=== PATIENT | male | born 1940 | race Two or more races ===

== ENCOUNTER 2018-05-09 13:12 | Inpatient (IN) | payer OTHER, MEDICAID ==
[~2018-05-09] VITALS: Ht 162.6 cm; Wt 65.8 kg
--- NOTE | 2018-05-09 13:20 | NUR ---
BIBRA DUE TO HYPOTENSION AND DIZINNESS. PATIENT IS ALERT AND ORIENTED X 3, SPANSIH SPEAKING ONLY. PUT HIM ON 02 @ 2LPM VIA NC AND TOLERATED WELL WITH 02 SAT OF 96%. IV HEPLOCK INITIATED. KEPT COMFORTABLE. WILL CONTINUE TO MONITOR ACCORDINGLY.
--- NOTE | 2018-05-09 13:25 | NUR ---
DR. MENDOZA AT BEDSIDE FOR EVAL.
[2018-05-09] MEDS ORDERED: IV NS 0.9% 1,000 ML BAG IV ONE (13:30)
[2018-05-09 13:45] LABS: BASOPHILS # (AUTO) 0.1 /CMM (0.0-0.2); BASOPHILS % (AUTO) 1.3 % (0.0-2.0); EOSINOPHILS % (AUTO) 1.6 % (0.0-6.0); HEMATOCRIT 36 % (39-51); HEMOGLOBIN 12.3 g/dL (13.5-17.5); LYMPHOCYTES # (AUTO) 1.8 /CMM (0.8-4.8); LYMPHOCYTES % (AUTO) 39.4 % (20.0-44.0); MEAN CORPUSCULAR HGB CONC 35 g/dl (31.0-36.0); MEAN CORPUSCULAR VOLUME 89 fL (80-96); MONOCYTES # (AUTO) 0.4 /CMM (0.1-1.30); MONOCYTES % (AUTO) 8.2 % (2.0-12.0); NEUTROPHILS # (AUTO) 2.3 /CMM (1.8-8.9); NEUTROPHILS % (AUTO) 49.5 % (43.0-81.0); PLATELET COUNT (AUTO) 216 /CMM (150-450); RDW COEFFICIENT OF VARIATION 13.9 (11.5-15.0); WHITE BLOOD COUNT (AUTO) 4.7 K/uL (4.3-11.0)
[2018-05-09 13:57] LABS: CARBON DIOXIDE 28 mmol/L (21-32); CHLORIDE 99 mmol/L (98-107); CREATININE 2.1 mg/dL (0.6-1.3); GLUCOSE 252 mg/dL (74-106); POTASSIUM 4.6 mmol/L (3.5-5.1); SODIUM SERUM 133 mmol/L (136-145); UREA NITROGEN, BLOOD 46 mg/dL (7-18)
[2018-05-09 13:59] LABS: INR 0.9 (0.85-1.15)
[2018-05-09 14:02] LABS: ALANINE AMINOTRANSFERASE 24 U/L (12-78); ALBUMIN 3.5 g/dL (3.4-5.0); ALKALINE PHOSPHATASE 141 U/L (46-116); ASPARTATE AMINOTRANSFERASE 24 U/L (15-37); BILIRUBIN,DIRECT 0.1 mg/dL (0.0-0.2); BILIRUBIN,TOTAL 0.4 mg/dL (0.2-1.0); TOTAL PROTEIN, SERUM 7.1 g/dL (6.4-8.2)
[2018-05-09 14:03] LABS: ALCOHOL, BLOOD < 3 mg/dL (0-0)
[2018-05-09 14:04] LABS: TROPONIN I < 0.017 ng/mL (0.00-0.056)
[2018-05-09 14:33] LABS: THYROID STIMULATING HORMONE 5.731 uIU/mL (0.358-3.74)
[2018-05-09] MEDS ORDERED: GLIM4TAB2 PO (15:26)
[2018-05-09] MEDS ORDERED: METF-442 PO (15:26)
[2018-05-09] MEDS ORDERED: LIRA0.6P SQ (15:26)
[2018-05-09] MEDS ORDERED: INSU100V27 SQ (15:26)
--- NOTE | 2018-05-09 15:50 | NUR ---
REPORT GIVEN TO ADILENE LUX. Addendum: 05/09/18 at 1550 by REAGAN PATIENT GOING TO [place] [id number]
[2018-05-09 16:00] VITALS: BP 149/109
[2018-05-09] MEDS ORDERED: MAGNESIUM HYDROXIDE 30 ML UDC PO PRN (16:00)
[2018-05-09] MEDS ORDERED: Z GUARD REMEDY 2 OZ OINT TP PRN (16:00)
[2018-05-09] MEDS ORDERED: ACETAMINOPHEN 325 MG TABLET PO PRN (16:00)
[2018-05-09] MEDS ORDERED: ONDANSETRON HCL/PF 4 MG/2 ML VIAL IVP PRN (16:00)
[2018-05-09] MEDS ORDERED: DEXTROSE 50%-WATER 50 ML DISP.SYRIN IV PRN (16:00)
[2018-05-09] MEDS ORDERED: MAG HYDROX/AL HYDROX/SIMETH 30 ML UDC PO PRN (16:00)
[2018-05-09] MEDS ORDERED: HYDROCODONE/APAP 5/325MG 1 EACH TABLET PO PRN (16:00)
[2018-05-09] MEDS ORDERED: ZOLPIDEM TARTRATE 5 MG TABLET PO PRN (16:00)
--- NOTE | 2018-05-09 16:00 | NUR ---
PT ARRIVED ON THE UNIT VIA WHEELCHAIR. PT A/O X 4 , DANISH SPEAKING ONLY. NO SKIN ISSUE EXCEPT BRUISES ON BOTH ARMS. PT DENIES FALLS. PT IS STABLE WITH NO DISTRESS NOTED AT THIS TIME. SAFETY PRECAUTIONS IN PLACE, CALL LIGHT WITHIN REACH.WILL F/U ORDERS AND CONTINUE TO MONITOR.
[2018-05-09] MEDS: GLIMEPIRIDE 4 MG TABLET PO SCH (17:56)
[2018-05-09] MEDS: BLOOD SUGAR DIAGNOSTIC 1 EACH STRIP IN SCH ×2 (17:58→21:21)
[2018-05-09] MEDS: INSULIN REGULAR, HUMAN 100 UNIT/ML 3 ML VIAL SQ PRN ×2 (18:07→21:20)
--- NOTE | 2018-05-09 19:25 | NUR ---
TELE/RN NOTES RECEIVED PT. SITTING UP IN CHAIR. PT. IS AWAKE, ALERT AND ORIENTED X3. BREATHING EVEN AND UNLABORED ON ROOM AIR. NO SOB, RESPIRATORY DISTRESS OR COMPLAINTS OF PAIN NOTED AT THIS TIME. NO COMPLAINTS OF LIGHTHEADED OR DIZZINESS NOTED AT THIS TIME. PT. WITH EXTERNAL COAL DRIER OPERATOR PRESENT AND INTACT CURRENT RHYTHM = SINUS RHYTHM HR 82. PT. WITH RIGHT HAND 20 GAUGE IV SALINE LOCK PRESENT, PATENT AND INTACT. PT. WITH FAMILY MEMBERS PRESENT AT BEDSIDE. PT. EDUCATED TO CALL FOR ASSISTANCE BEFORE AMBULATING. PT. VERBALIZED UNDERSTANDING. BED LOCKED AND IN LOWEST POSITION, SIDE RAILS UP X2, CALL LIGHT WITHIN REACH, WILL CONTINUE TO MONITOR.
[2018-05-09 19:35] VITALS: BP 139/77
[2018-05-09] MEDS: MECLIZINE HCL 25 MG TABLET PO SCH (21:14)
[2018-05-10] VITALS: BP 121/72
[2018-05-10 04:00] VITALS: BP 129/70
[2018-05-10] MEDS: MECLIZINE HCL 25 MG TABLET PO SCH ×3 (04:44→20:44)
--- NOTE | 2018-05-10 06:07 | NUR ---
TELE/RN NOTES PT. IS LYING IN BED RESTING, BREATHING EVEN AND UNLABORED ON ROOM AIR. NO SOB, RESPIRATORY DISTRESS OR COMPLAINTS OF PAIN NOTED AT THIS TIME AND THROUGHOUT SHIFT. NO COMPLAINTS OF LIGHTHEADED OR DIZZINESS NOTED AT THIS TIME AND THROUGHOUT SHIFT. PT. WITH EXTERNAL SENIOR MAINTENANCE MECHANIC PRESENT AND INTACT CURRENT RHYTHM = SINUS RHYTHM HR 72. PT. WITH RIGHT HAND 20 GAUGE IV SALINE LOCK PRESENT, PATENT AND INTACT. ALL PT. NEEDS MET. BED LOCKED AND IN LOWEST POSITION, SIDE RAILS UP X2, CALL LIGHT WITHIN REACH, WILL CONTINUE ENDORSE TO DAYSHIFT NURSE FOR CONTINUITY OF CARE.
[2018-05-10 06:44] LABS: BASOPHILS % (AUTO) 0.6 % (0.0-2.0); EOSINOPHILS % (AUTO) 1.8 % (0.0-6.0); HEMATOCRIT 35 % (39-51); HEMOGLOBIN 12.1 g/dL (13.5-17.5); LYMPHOCYTES # (AUTO) 1.8 /CMM (0.8-4.8); LYMPHOCYTES % (AUTO) 40.6 % (20.0-44.0); MEAN CORPUSCULAR HGB CONC 34 g/dl (31.0-36.0); MEAN CORPUSCULAR VOLUME 90 fL (80-96); MONOCYTES # (AUTO) 0.5 /CMM (0.1-1.30); MONOCYTES % (AUTO) 11.8 % (2.0-12.0); NEUTROPHILS % (AUTO) 45.2 % (43.0-81.0); PLATELET COUNT (AUTO) 215 /CMM (150-450); RED BLOOD CELL COUNT(AUTO) 3.93 MIL/uL (4.5-6.0); WHITE BLOOD COUNT (AUTO) 4.4 K/uL (4.3-11.0)
[2018-05-10] MEDS: BLOOD SUGAR DIAGNOSTIC 1 EACH STRIP IN SCH ×4 (06:50→21:28)
[2018-05-10] MEDS: INSULIN REGULAR, HUMAN 100 UNIT/ML 3 ML VIAL SQ PRN ×3 (06:51→21:47)
[2018-05-10 07:11] LABS: CHOLESTEROL 183 mg/dL (<200); HDL CHOLESTEROL 52 mg/dL (40-60); LDL 120 mg/dL (0-99); THYROID STIMULATING HORMONE 8.613 uIU/mL (0.358-3.74); TRIGLYCERIDES 151 mg/dL (30-150)
[2018-05-10 07:13] LABS: CARBON DIOXIDE 29 mmol/L (21-32); CHLORIDE 100 mmol/L (98-107); CREATININE 1.3 mg/dL (0.6-1.3); GLUCOSE 229 mg/dL (74-106); MAGNESIUM 1.8 mg/dL (1.8-2.4); PHOSPHORUS 3.2 mg/dL (2.5-4.9); POTASSIUM 4.1 mmol/L (3.5-5.1); SODIUM SERUM 136 mmol/L (136-145); UREA NITROGEN, BLOOD 30 mg/dL (7-18)
--- NOTE | 2018-05-10 07:19 | NUR ---
ADVANCED PRACTICE NURSE OPENING NOTES PT WAS RECEIVED IN BED AT LOWEST AND LOCKED POSITION WITH SIDE RAILS UP X2, NO S/S OF PAIN OR DISTRESS NOTED, BREATHING IS EVEN AND UNLABORED ON RA, IV IS PATENT AND INTACT, ON TELE MONITOR CURRENTLY SR,80S, BED ALARM IS ON, SAFETY PRECAUTIONS IN PLACE, CALL LIGHT WITHIN REACH, WILL MONITOR ACCORDINGLY
[2018-05-10 07:29] LABS: CALCIUM, SERUM 8.7 mg/dL (8.5-10.1)
[2018-05-10 08:00] VITALS: BP 142/77
[2018-05-10] MEDS: GLIMEPIRIDE 4 MG TABLET PO SCH ×2 (08:18→16:52)
[2018-05-10] MEDS: ASPIRIN EC 81 MG TABLET.DR PO SCH (12:31)
[2018-05-10] MEDS: IV NS 0.9% 1,000 ML IV PRN (12:32)
--- NOTE | 2018-05-10 12:59 | NUR ---
PT STABLE AND WAS PICKED UP AT THIS TIME FOR MRI OF BRAIN AND MRA OF HEAD WITHOUT CONTRAST
--- NOTE | 2018-05-10 14:05 | NUR ---
PT ARRIVED BACK FROM PROCEDURE, PT IS STABLE, WILL CONTINUE TO MONITOR ACCORDINGLY
[2018-05-10 16:00] VITALS: BP 147/78
--- NOTE | 2018-05-10 17:00 | NUR ---
BG WAS NOTED TO BE 78, PER SLIDING SCALE NO INSULIN REQUIRED AT THIS TIME
--- NOTE | 2018-05-10 18:00 | NUR ---
MS RN OPENING NOTES PT IN BED AT LOWEST AND LOCKED POSITION WITH SIDE RAILS UP X2, NO S/S OF PAIN OR DISTRESS NOTED, BREATHING IS EVEN AND UNLABORED ON RA, A/O X3 PALESTINIAN SPEAKING ONLY, IV IS PATENT AND INTACT WITH IVF RUNNING, PT IS AMBULATORY, BED ALARM IS ON, SAFETY PRECAUTIONS IN PLACE, CALL LIGHT WITHIN REACH, ALL NEEDS ATTENDED TO, WILL ENDORSE TO SHAMPOO PERSON FOR CONTINUITY OF CARE Addendum: 05/10/18 at 1804 by PRETTY MCGILL RN MS RN CLOSING NOTES
[2018-05-10 20:00] VITALS: BP 137/85
--- NOTE | 2018-05-10 20:00 | NUR ---
MS/RN OPENING NOTES RECEIVED PATIENT IN BED, AWAKE, ALERT X3, LATVIAN SPEAKING WITH BRP. DENIES PAIN, NO OBSERVED GUARDING OR GRIMACE, CALM AND COOPERATIVE TO CARE INSTRUCTED TO USE CALL LIGHTS FOR ASSISTANCE. CALL LIGHTS WITHIN REACH, BED IN LOCK POSITION, WILL MONITOR, BED ALARM ON. RESPIRATIONS EVEN AND UNLABORED, ON ROOM AIR. WILL MONITOR HYPO/HYPERGLYCEMIA, RECEIVED ENDORSEMENT FROM AM RN FOR JOSE J. PROVIDE FLUIDS, IV SITE WITH NO S/S OF INFILTRATION OR REDNESS, ON RIGHT HAND GAUGE 20, ABLE TO FLUSH.
[2018-05-10 20:31] VITALS: BP 137/85
[2018-05-10] MEDS: ATORVASTATIN 10 MG TABLET PO SCH (21:28)
--- NOTE | 2018-05-10 22:00 | NUR ---
MS/RN NOTES BS CHECK AT 262, INSULIN SLIDING SCALE PROTOCOL ADMINISTER AND CO SIGNED BY ANOTHER RN AT 6UNITS, PROVIDED SOME SNACKS.
[2018-05-11] MEDS: IV NS 0.9% 1,000 ML IV PRN ×2 (03:08→21:22)
[2018-05-11 03:56] VITALS: BP_SYST 141; BP_SYST 155; BP_DIAS 82; BP_DIAS 87
[2018-05-11 03:57] VITALS: BP 125/75
[2018-05-11] MEDS: MECLIZINE HCL 25 MG TABLET PO SCH ×3 (04:57→20:09)
[2018-05-11] MEDS: BLOOD SUGAR DIAGNOSTIC 1 EACH STRIP IN SCH ×4 (06:14→21:14)
--- NOTE | 2018-05-11 06:20 | NUR ---
MS/RN NOTES BLOOD SUGAR CHECK, PATIENT ALERT, ORIENTED, AWAKE AND CAN FOLLOW SIMPLE COMMANDS, BLOOD SUGAR CHECK AT 64, GAVE ORANGE JUICE, ABLE TO TOLERATE. WILL MONITOR.
--- NOTE | 2018-05-11 06:38 | NUR ---
327-1 MS/RN CLOSING NOTES PATIENT ABLE TO SLEEP DURING THE NIGHTS, PARTICIPATIVE AND COOPERTAIVE TO CARE, DENIES PAIN, IV FLUIDS ADMINISTERED FOR HYDRATION, BED IN LOCKED POSITIN, CALL LIGHTS WITHIN REACHED.WILL ENDORSE TO AM RN FOR JOSE J.
[2018-05-11 07:07] LABS: BASOPHILS % (AUTO) 0.4 % (0.0-2.0); HEMATOCRIT 36 % (39-51); HEMOGLOBIN 12.1 g/dL (13.5-17.5); LYMPHOCYTES # (AUTO) 2.4 /CMM (0.8-4.8); LYMPHOCYTES % (AUTO) 42.5 % (20.0-44.0); MEAN CORPUSCULAR HGB CONC 34 g/dl (31.0-36.0); MEAN CORPUSCULAR VOLUME 90 fL (80-96); MONOCYTES # (AUTO) 0.6 /CMM (0.1-1.30); MONOCYTES % (AUTO) 10.7 % (2.0-12.0); NEUTROPHILS # (AUTO) 2.6 /CMM (1.8-8.9); NEUTROPHILS % (AUTO) 45.4 % (43.0-81.0); PLATELET COUNT (AUTO) 210 /CMM (150-450); RED BLOOD CELL COUNT(AUTO) 3.94 MIL/uL (4.5-6.0); WHITE BLOOD COUNT (AUTO) 5.7 K/uL (4.3-11.0)
[2018-05-11 07:26] LABS: CALCIUM, SERUM 8.2 mg/dL (8.5-10.1); CARBON DIOXIDE 28 mmol/L (21-32); CHLORIDE 103 mmol/L (98-107); CREATININE 0.9 mg/dL (0.6-1.3); GLUCOSE 94 mg/dL (74-106); MAGNESIUM 1.4 mg/dL (1.8-2.4); PHOSPHORUS 2.9 mg/dL (2.5-4.9); POTASSIUM 3.8 mmol/L (3.5-5.1); SODIUM SERUM 138 mmol/L (136-145); UREA NITROGEN, BLOOD 19 mg/dL (7-18)
--- NOTE | 2018-05-11 07:48 | NUR ---
RN NOTES PATIENT A/OX3, AZERI SPEAKING, PATIENT STILL C/O DIZZINESS. INSTRUCTED PATIENT TO CALL FOR ASSISTANCE, RETAIL LOAN ORIGINATOR ASSISTANT RN REPORTED THAT PATIENT WAS GIVEN ORANGE JUICE FOR BS 64. NEEDS ATTENDED AND MET, CALL LIGHT WITHIN REACH, WILL CONTINUE TO MONITOR.
[2018-05-11 08:00] VITALS: BP 132/70
[2018-05-11] MEDS: ASPIRIN EC 81 MG TABLET.DR PO SCH (09:32)
[2018-05-11] MEDS: GLIMEPIRIDE 4 MG TABLET PO SCH ×2 (09:32→17:40)
[2018-05-11] MEDS ORDERED: KETOROLAC TROMETHAMINE INJ 30 MG/ML VIAL IV STA (10:10)
[2018-05-11] MEDS: Magnesium 1GM/D5W 100ML PREMIX 100 ML IV SCH ×2 (11:22→13:01)
[2018-05-11] MEDS: INSULIN REGULAR, HUMAN 100 UNIT/ML 3 ML VIAL SQ PRN ×3 (12:09→21:17)
[2018-05-11] MEDS ORDERED: IV NS 0.9% 500 ML IV ONE (12:30)
[2018-05-11] MEDS: LEVOTHYROXINE SODIUM 50 MCG TABLET PO SCH (13:05)
[2018-05-11] MEDS ORDERED: Magnesium 1GM/D5W 100ML PREMIX 100 ML IV SCH (13:30)
--- NOTE | 2018-05-11 14:18 | NUR ---
RN NOTES RECEIVED ORDER FOR LOVENOX 40MG SQ DAILY FROM DESIRE FERNÁNDEZ NP. ORDER NOTED AND CARRIED OUT.
[2018-05-11] MEDS: ENOXAPARIN SODIUM 40 MG/0.4 ML DISP.SYRIN SQ SCH (14:34)
[2018-05-11 16:00] VITALS: BP 138/83
--- NOTE | 2018-05-11 18:29 | NUR ---
RN NOTES PATIENT A/OX3, NO DISTRESS NOTED, BREATHING EVEN AND UNLABORED, NO SOB NOTED. NO S/SX OF HYPO/HYPERGLYCEMIA OBSERVED. PATIENT ASSISTED WITH ADLS, IVF INFUSING AND TOLERATING WELL. NEEDS ATTENDED AND MET, CALL LIGHT WITHIN REACH, WILL ENDORSE TO ROBOTIC MAINTENANCE TECHNICIAN FOR JOSE J.
[2018-05-11 20:00] VITALS: BP 123/63
[2018-05-11] MEDS: ATORVASTATIN 10 MG TABLET PO SCH (21:14)
[2018-05-12 04:00] VITALS: BP 147/72
[2018-05-12] MEDS: MECLIZINE HCL 25 MG TABLET PO SCH ×2 (05:20→12:19)
[2018-05-12 06:00] VITALS: BP_SYST 147; BP_SYST 155; BP_SYST 156; BP_DIAS 72; BP_DIAS 88
--- NOTE | 2018-05-12 06:16 | NUR ---
MS RN NOTES AWAKE & RESPONSIVE. NOT IN ANY DISTRESS. NO SOB NOTED. DENIES ANY PAIN AT THIS TIME. PT STILL NOTED TO HAVE SOME DIZZINESS VERBALIZED BY THE PT. CALL LIGHT WITHIN REACH. BED IN LOWEST POSITION. SR UP X 3 WITH BED ALARM ON FOR SAFETY. WILL ENDORSE TO NEXT SHIFT.
[2018-05-12] MEDS: BLOOD SUGAR DIAGNOSTIC 1 EACH STRIP IN SCH ×2 (06:26→12:17)
[2018-05-12] MEDS: INSULIN REGULAR, HUMAN 100 UNIT/ML 3 ML VIAL SQ PRN ×2 (06:26→12:37)
[2018-05-12 07:18] LABS: BASOPHILS % (AUTO) 0.3 % (0.0-2.0); EOSINOPHILS % (AUTO) 1.4 % (0.0-6.0); HEMATOCRIT 35 % (39-51); HEMOGLOBIN 11.7 g/dL (13.5-17.5); LYMPHOCYTES # (AUTO) 1.9 /CMM (0.8-4.8); LYMPHOCYTES % (AUTO) 30.4 % (20.0-44.0); MEAN CORPUSCULAR HGB CONC 34 g/dl (31.0-36.0); MEAN CORPUSCULAR VOLUME 90 fL (80-96); MONOCYTES # (AUTO) 0.8 /CMM (0.1-1.30); NEUTROPHILS # (AUTO) 3.5 /CMM (1.8-8.9); NEUTROPHILS % (AUTO) 54.9 % (43.0-81.0); PLATELET COUNT (AUTO) 201 /CMM (150-450); RDW COEFFICIENT OF VARIATION 14.7 (11.5-15.0); RED BLOOD CELL COUNT(AUTO) 3.88 MIL/uL (4.5-6.0); WHITE BLOOD COUNT (AUTO) 6.4 K/uL (4.3-11.0)
[2018-05-12 07:26] LABS: CALCIUM, SERUM 8.2 mg/dL (8.5-10.1); CARBON DIOXIDE 29 mmol/L (21-32); CHLORIDE 104 mmol/L (98-107); GLUCOSE 127 mg/dL (74-106); MAGNESIUM 1.6 mg/dL (1.8-2.4); PHOSPHORUS 2.5 mg/dL (2.5-4.9); POTASSIUM 4.2 mmol/L (3.5-5.1); SODIUM SERUM 138 mmol/L (136-145); UREA NITROGEN, BLOOD 20 mg/dL (7-18)
--- NOTE | 2018-05-12 07:35 | NUR ---
MS RN RECEIVE DON BED, AWAKE,ALERT,ORIENTED X3,NOT IN ANY FORM OF DISTRESS, RESPIRATIONS EVEN AND UNLABORED,NO SOB NOTED, LUNGS ARE CLEAR,ABDOMEN SOFT,POSITIVE BOWEL SOUNDS, DENIES PAIN AT THIS TIME,ALL NEEDS ATTENDED.
[2018-05-12 08:00] VITALS: BP 156/93
[2018-05-12] MEDS: GLIMEPIRIDE 4 MG TABLET PO SCH (08:10)
[2018-05-12] MEDS: ASPIRIN EC 81 MG TABLET.DR PO SCH (08:10)
[2018-05-12] MEDS: LEVOTHYROXINE SODIUM 50 MCG TABLET PO SCH (08:10)
[2018-05-12] MEDS: ENOXAPARIN SODIUM 40 MG/0.4 ML DISP.SYRIN SQ SCH (08:12)
--- NOTE | 2018-05-12 08:30 | NUR ---
MS VAUGHN BREAKFAST SERVED,DUE MEDS GIVEN,TOLERATED WELL.
--- NOTE | 2018-05-12 10:00 | NUR ---
MS RN WAS SEEN BY DESIRE FERNÁNDEZ W/ DISCHARGE ORDER,ALL NEEDS ATTENDED.
[2018-05-12] MEDS ORDERED: ASPI-1152 PO (10:38)
[2018-05-12] MEDS ORDERED: MECL-102 PO (10:38)
[2018-05-12] MEDS ORDERED: LEVO50TA PO (10:38)
[2018-05-12] MEDS ORDERED: ATOR10TA PO (10:38)
[2018-05-12] MEDS: Magnesium 1GM/D5W 100ML PREMIX 100 ML IV SCH ×2 (10:43→12:17)
[2018-05-12] MEDS ORDERED: IV NS 0.9% 500 ML IV ONE (11:00)
--- NOTE | 2018-05-12 16:15 | NUR ---
ms rn other daughter came and wanted to bring dad home, discharge instructions given and understood, went home,all needs attended.
== END 2018-05-12 16:00 | disposition home or self-care (01) | DRG 683 ==
LOC: ER 13:15 → TELE 15:13 → MED 05-10 08:54
DX: N17.0 Acute kidney failure with tubular necrosis (principal); E87.1 Hypo-osmolality and hyponatremia; H81.399 Other peripheral vertigo, unspecified ear; E11.65 Type 2 diabetes mellitus with hyperglycemia; E78.5 Hyperlipidemia, unspecified; E86.0 Dehydration; Z79.82 Long term (current) use of aspirin; I67.2 Cerebral atherosclerosis; I10 Essential (primary) hypertension; E03.9 Hypothyroidism, unspecified; S50.12XA Contusion of left forearm, initial encounter; S50.11XA Contusion of right forearm, initial encounter
CPT/HCPCS: 36415; 70450-TC; 70544-TC; 70551-TC; 71045-TC; 80048-TC; 80061-TC; 80076-TC; 82962-TC; 83605-TC; 83735-TC; 84100-TC; 84439-TC; 84443-TC; 84484-TC; 85025-TC; 85730-TC; 86850-TC; 87040-TC; 87081-TC; 93307-TC; A4606; G0480; J1650; J1815; J1885; J3475; J7030; J7040; J8597; Z7610

== ENCOUNTER 2018-10-18 14:23 | Emergency (ER) | payer MEDICAID, OTHER ==
[~2018-10-18] VITALS: Ht 167.6 cm; Wt 65.8 kg
[~2018-10-18 14:23] MED LIST: ASPI-1152 PO; ATOR10TA PO; GLIM4TAB2 PO; INSU100V27 SQ; LEVO50TA PO; LIRA0.6P SQ; MECL-102 PO; METF-442 PO
--- NOTE | 2018-10-18 14:33 | NUR ---
[id number], FOUND ON THE STREET DRUNK AND STUMBLING, TO ER BED 11, HOOKED TO MONITOR, AWAITING MD KAUFMAN
--- NOTE | 2018-10-18 14:35 | NUR ---
DR MARTINEZ AT BEDSIDE FOR EVAL
--- NOTE | 2018-10-18 14:50 | NUR ---
URINE SAMPLE SENT TO LAB
[2018-10-18 15:04] LABS: EOSINOPHILS % (AUTO) 0.8 % (0.0-6.0); HEMATOCRIT 37 % (39-51); HEMOGLOBIN 12.5 g/dL (13.5-17.5); LYMPHOCYTES # (AUTO) 2.5 /CMM (0.8-4.8); LYMPHOCYTES % (AUTO) 52.5 % (20.0-44.0); MEAN CORPUSCULAR HGB CONC 34 g/dl (31.0-36.0); MEAN CORPUSCULAR VOLUME 89 fL (80-96); MONOCYTES # (AUTO) 0.3 /CMM (0.1-1.30); MONOCYTES % (AUTO) 7.3 % (2.0-12.0); NEUTROPHILS # (AUTO) 1.8 /CMM (1.8-8.9); NEUTROPHILS % (AUTO) 38.4 % (43.0-81.0); PLATELET COUNT (AUTO) 194 /CMM (150-450); WHITE BLOOD COUNT (AUTO) 4.7 K/uL (4.3-11.0)
[2018-10-18 15:10] LABS: APPEARANCE,URINE Clear (CLEAR); BILIRUBIN,URINE Negative (NEGATIVE); BLOOD, URINE Negative Ery/uL (NEGATIVE); COLOR,URINE Yellow (YELLOW); KETONES,URINE Negative (NEGATIVE); LEUKOCYTE ESTERASE ,URINE Negative (NEGATIVE); NITRITE, URINE Negative (NEGATIVE); PH,URINE 5.5 (5.0-8.0); PROTEIN,URINE Trace mg/dl (NEGATIVE); UGLUCOSE 500 MG/DL mg/dL (NEGATIVE); UROBILINOGEN,URINE 0.2 EU/dL (0.2)
[2018-10-18 15:12] LABS: CALCIUM, SERUM 8.2 mg/dL (8.5-10.1); CARBON DIOXIDE 28 mmol/L (21-32); CHLORIDE 97 mmol/L (98-107); CREATININE 1.3 mg/dL (0.6-1.3); GLUCOSE 270 mg/dL (74-106); SODIUM SERUM 131 mmol/L (136-145); UREA NITROGEN, BLOOD 22 mg/dL (7-18)
[2018-10-18 15:18] LABS: ALANINE AMINOTRANSFERASE 18 U/L (12-78); ALBUMIN 3.5 g/dL (3.4-5.0); ALCOHOL, BLOOD 205 mg/dL (0-0); ALKALINE PHOSPHATASE 112 U/L (46-116); ASPARTATE AMINOTRANSFERASE 20 U/L (15-37); BILIRUBIN,DIRECT 0.1 mg/dL (0.0-0.2); BILIRUBIN,TOTAL 0.3 mg/dL (0.2-1.0); TOTAL PROTEIN, SERUM 7.3 g/dL (6.4-8.2)
[2018-10-18 15:19] LABS: BACTERIA,URINE None seen /HPF (None Seen); RBC,URINE 0-2 /HPF (0-2); SQUAMOUS EPITHELIAL CELL,UR Few /HPF (None Seen); WBC,URINE 0-2 /HPF (0-3)
[2018-10-18 15:20] LABS: ACETAMINOPHEN < 2 ug/ml (10-30); SALICYLATE < 2.8 mg/dL (2.8-20.0)
--- NOTE | 2018-10-18 15:20 | NUR ---
PT WALKING AT HALLWAY, W UNSTEADY GAIT, TRYING TO GO HOME. EXPLAINED THAT HER DAUGHTER WILL COME AND PICK HIM UP. PT RETURNED TO BED.
--- NOTE | 2018-10-18 16:47 | NUR ---
PROVIDED WITH SANDWICH AND WATER. PT TOLERATING PO WELL.
--- NOTE | 2018-10-18 18:10 | NUR ---
Patient discharged to home accompanied by daughter Nataliia Clark [phone] in stable condition. Pt able to ambulate w steady gait. Written and verbal after care instructions given. Daughter verbalizes understanding of instruction.
[2018-10-18 18:38] VITALS: BP 112/74
== END 2018-10-18 18:38 | disposition home or self-care (01) ==
LOC: ER 14:26
DX: F10.129 Alcohol abuse with intoxication, unspecified (principal); E11.9 Type 2 diabetes mellitus without complications; I10 Essential (primary) hypertension; E03.9 Hypothyroidism, unspecified; Y90.7 Blood alcohol level of 200-239 mg/100 ml; Z88.0 Allergy status to penicillin; Z79.4 Long term (current) use of insulin; Z79.82 Long term (current) use of aspirin
CPT/HCPCS: 36415; 80048; 80076; 80305; 80307; 81001; 85025; 99283; A4606; G0480; 81000-TC

== ENCOUNTER 2022-06-12 22:35 | Inpatient (IN) | payer MEDICARE, OTHER ==
[~2022-06-12] VITALS: Ht 167.6 cm; Wt 49.9 kg
[~2022-06-12 22:35] MED LIST changes: -ASPI-1152 PO; +ASPI-1420 PO; -GLIM4TAB2 PO; +GLIM4TAB37 PO; -MECL-102 PO; +MECL-159 PO
--- NOTE | 2022-06-12 23:00 | NUR ---
[id number] FROM [facility] PULLED OUT GT EARLIER TODAY. NO F/C INPLACE TO KEEP OPEN. PT IS AAOX2 HX OF [facility]. DENIES ANY DISCOMFORT AT THIS TIME. CONNECTED TO POX AND HEART MONITOR. AWAITING MD KAUFMAN
--- NOTE | 2022-06-13 00:03 | NUR ---
COVID SWAB COLLECTED
--- NOTE | 2022-06-13 00:04 | NUR ---
BLOOD COLLECTED AND SENT TO LAB
--- NOTE | 2022-06-13 00:04 | NUR ---
IV LINE ESTABLISHED, [id number]
[2022-06-13] MEDS ORDERED: Z GUARD REMEDY 4 OZ OINT TP PRN (00:30)
[2022-06-13] MEDS ORDERED: ONDANSETRON HCL/PF 4 MG/2 ML VIAL IVP PRN (00:30)
[2022-06-13] MEDS ORDERED: ACETAMINOPHEN 325 MG TABLET PO PRN (00:30)
[2022-06-13 00:53] LABS: BASOPHILS # (AUTO) 0.1 K/uL (0.0-0.2); BASOPHILS % (AUTO) 1.2 % (0.0-2.0); EOSINOPHILS % (AUTO) 2.5 % (0.0-6.0); HEMATOCRIT 36 % (39-51); HEMOGLOBIN 11.7 g/dL (13.5-17.5); LYMPHOCYTES # (AUTO) 1.9 K/uL (0.8-4.8); LYMPHOCYTES % (AUTO) 30.3 % (20.0-44.0); MEAN CORPUSCULAR HGB CONC 33 g/dl (31.0-36.0); MEAN CORPUSCULAR VOLUME 88 fL (80-96); MONOCYTES # (AUTO) 0.6 K/uL (0.1-1.30); MONOCYTES % (AUTO) 9.5 % (2.0-12.0); NEUTROPHILS # (AUTO) 3.6 K/uL (1.8-8.9); NEUTROPHILS % (AUTO) 56.5 % (43.0-81.0); PLATELET COUNT (AUTO) 125 K/uL (150-450); RED BLOOD CELL COUNT(AUTO) 4.08 MIL/uL (4.5-6.0); WHITE BLOOD COUNT (AUTO) 6.4 K/uL (4.3-11.0)
[2022-06-13 01:44] LABS: ALBUMIN 3.1 g/dL (3.4-5.0); BILIRUBIN,TOTAL 0.9 mg/dL (0.2-1.0); CALCIUM, SERUM 9.2 mg/dL (8.5-10.1); MAGNESIUM 2.2 mg/dL (1.8-2.4); PHOSPHORUS 3.3 mg/dL (2.5-4.9); POTASSIUM 4.2 mmol/L (3.5-5.1); TOTAL PROTEIN, SERUM 8.5 g/dL (6.4-8.2)
--- NOTE | 2022-06-13 01:59 | NUR ---
321-2 PER NURSING RN
--- NOTE | 2022-06-13 02:13 | NUR ---
report given to felton rn for aiden
--- NOTE | 2022-06-13 03:30 | NUR ---
RN NOTES RECEIVED PATIENT FROM ER VIA SILVERIO, REPORTED BY ER NURSE DIPTI. A/O X1, CONFUSED, ABLE TO OBEY COMMAND, COSTA RICAN SPEAKING. ATTACHED TO 02, 2 LPM VIA NASAL CANNULA, BREATHING EVENLY AND UNLABORED. VITAL SIGNS TAKEN. NO DISTRESS NOTED. WITH IV ACCESS AT LEFT FOREARM #20, SALINE LOCK, INTACT AND PATENT. SKIN IMPAIRMENT NOTED AT MULTIPLE AREAS IN THE BODY. TAKEN PHOTOS AND FILED. WITH HEMODIALYSIS ACCESS AT RIGHT LOWER SUBCLAVIAN AREA. DIALYSIS TREATMENT (WED-WED-WED), LAST HD WEDNESDAY, 06/12 G-TUBE WAS REMOVED. FOR GI CONSULT AND NEPHRO CONSULT THIS AM. SAFETY PRECAUTIONS INITIATED, SIDE RAILS UP X3, BED LOWERED, BRAKES ON, CALL LIGHT WITHIN REACH. WILL CONTINUE TO MONITOR PATIENT THROUGHOUT THE SHIFT. Addendum: 06/13/22 at 0511 by VERONICA VAUGHN RN PATIENT WAS ON NPO WITH STRICT ASPIRATION PRECAUTION.
[2022-06-13 04:00] VITALS: BP 120/55
[2022-06-13 04:30] VITALS: BP 118/79
--- NOTE | 2022-06-13 05:24 | NUR ---
PATIENT SWABBED FOR MRSA, SPECIMEN TAKEN VIA LEFT NOSTRILS. PATIENT REFUSED TO BE SWABBED AT BOTH NOSTRILS. TOLERATED PROCEDURE WELL.
--- NOTE | 2022-06-13 06:50 | NUR ---
MS RN CLOSING NOTES PATIENT IS AWAKE, A/O X1, CONFUSED, ABLE TO OBEY COMMAND, GUATEMALAN SPEAKING. ATTACHED TO 02 WITH 2 LPM VIA NASAL CANNULA, BREATHING EVENLY AND UNLABORED. NO S/S OF RESPIRATORY DISTRESS AT THIS TIME. WITH IV ACCESS AT LEFT FOREARM #20, SALINE LOCK, INTACT AND PATENT. SKIN IMPAIRMENT NOTED AT MULTIPLE AREAS IN THE BODY. PHOTOS TAKEN AND FILED. WITH HEMODIALYSIS ACCESS AT RIGHT LOWER SUBCLAVIAN AREA. DIALYSIS TREATMENT (WED-WED-WED), LAST HD WEDNESDAY, 06/12. PATIENTS G-TUBE WAS REMOVED. ON NPO STATUS WITH STRICT ASPIRATION PRECAUTION. FOR GI CONSULT AND NEPHRO CONSULT THIS AM. SAFETY PRECAUTIONS INITIATED, SIDE RAILS UP X3, BED LOWERED, BRAKES ON, CALL LIGHT WITHIN REACH. WILL ENDORSE TO DAY SHIFT RN FOR JOSE J.
[2022-06-13 07:00] VITALS: BP 146/92
[2022-06-13] MEDS ORDERED: PANTOPRAZOLE 40 MG TABLET.DR PO SCH (07:30)
--- NOTE | 2022-06-13 08:02 | NUR ---
MS RN OPENING NOTES PATIENT IS AWAKE, A/O X1, CONFUSED, ABLE TO FOLLOW INSTRUCTIONS; UGANDAN SPEAKING. PT ON 2 LPM O2 VIA NASAL CANNULA, BREATHING EVENLY AND UNLABORED. NO S/S OF RESPIRATORY DISTRESS AT THIS TIME. WITH IV ACCESS AT LEFT FOREARM #20, SALINE LOCK, INTACT AND PATENT. HD CATH AT RIGHT LOWER SUBCLAVIAN AREA NOTED. ON NPO STATUS. DRESSING NOTED AT PREVIOUS GTUBE SITE, CDI. NPO STATUS. SAFETY MEASURES IN PLACE, CALL LIGHT AND TABLE WITHIN REACH, WILL CONT WITH PLAN OF CARE DURING SHIFT.
[2022-06-13] MEDS: IV D5/0.45 NACL 1,000 ML IV PRN (08:23)
[2022-06-13] MEDS ORDERED: LINA5TAB GT (09:17)
[2022-06-13] MEDS ORDERED: COLL30OI TP (09:17)
[2022-06-13] MEDS ORDERED: TRAZ-252 GT (09:17)
[2022-06-13] MEDS ORDERED: ALBU2.5V38 NEB (09:17)
[2022-06-13] MEDS ORDERED: INSU100V7 SQ (09:17)
[2022-06-13] MEDS ORDERED: QUET25TA GT (09:17)
[2022-06-13] MEDS ORDERED: DONE5TAB34 GT (09:17)
[2022-06-13] MEDS ORDERED: LEVO150T8 GT (09:17)
[2022-06-13] MEDS ORDERED: FERR300L GT (09:17)
[2022-06-13] MEDS ORDERED: PANT40SU2 GT (09:17)
[2022-06-13] MEDS ORDERED: MIDO5TAB4 GT (09:17)
[2022-06-13] MEDS ORDERED: ASPI-1169 GT (09:17)
[2022-06-13] MEDS ORDERED: OLANZAPINE 10 MG VIAL IM ONE ×2 (09:30→15:30)
[2022-06-13] MEDS ORDERED: ALBUTEROL FS 2.5 MG/3 ML VIAL.NEB NEB PRN (09:30)
[2022-06-13] MEDS ORDERED: QUETIAPINE FUMARATE 25 MG TABLET GT PRN (09:30)
--- NOTE | 2022-06-13 10:45 | NUR ---
MS RN NOTES; OBTAINED VERBAL CONSENT FOR HD FROM BRAYAN GRIMALDO DAUGHTER, SIGNED BY 2 SILK HANGER WITNESS.
[2022-06-13] MEDS: MIDODRINE HCL (5MG) 5 MG TABLET GT SCH ×2 (13:00→17:00)
--- NOTE | 2022-06-13 15:00 | NUR ---
MS RN NOTESl PT IS VERY AGITATED, TOOK HOSP GOWN OFF, TOLD RIB BUILDER HE WANTS TO GO HOME AND STARTED PULLING ON IV AND HD CATH DRESSING. 2 STUDENT NURSES STAYED WITH PT AT BEDSIDE, ALERTED MD, PENDING ORDER. 1510- ORDERED ONE TIME 5 MG ZYPREXA IM BUT AT THIS TIME PT HAS CALMED DOWN ON HIS OWN WITH 2 STUDENT NURSES AT BEDSIDE, HELD MEDICATION FOR NOW, WILL CONT TO REASSESS DURING SHIFT.
[2022-06-13 16:00] VITALS: BP 108/70
--- NOTE | 2022-06-13 17:30 | NUR ---
MS RN NOTES: PT ACCUCHECK [id number]- [id number] [phone]- NOTIFIED GLOVE PAIRER, GIVEN SUGAR, CONTINUED IV -D5 1/2 NS @ 75ML/HR, RECHECKED BS= 67, WILL REASSESS AND ENDORSE TO PM SHIFT.
--- NOTE | 2022-06-13 18:39 | NUR ---
MS RN OPENING NOTES PATIENT IS AWAKE, A/O X1, CONFUSED, ABLE TO FOLLOW INSTRUCTIONS BUT WITH PERIOD AGITATION, SLOVAK SPEAKING. PT ON 2 LPM O2 VIA NASAL CANNULA, BREATHING EVENLY AND UNLABORED. NO S/S OF RESPIRATORY DISTRESS AT THIS TIME. WITH IV ACCESS AT LEFT FOREARM #20,RUNNING D5 1/2 NS @75ML/HR, WRAPPED IN KERLIX TO PREVENT PULLING. HD CATH AT RIGHT LOWER SUBCLAVIAN AREA WRAPPED IN DRESSING, CLEAN, DRY AND INTACT. DRESSING NOTED AT PREVIOUS GTUBE SITE, CDI. NPO STATUS. DAUGHTER ARTURO IS AT BEDSIDE. SAFETY MEASURES IN PLACE, CALL LIGHT AND TABLE WITHIN REACH, WILL CONT WITH PLAN OF CARE DURING SHIFT. Addendum: 06/13/22 at 1928 by SAMI LARA RN THIS IS CLOSING NOTES FOR THIS PT, ENDORSED TO PM SHIFT.
--- NOTE | 2022-06-13 19:42 | NUR ---
MS RN OPENING NOTES RECEIVED PATIENT LYING AWAKE IN BED, WITH DAUGHTER. A/O X1, CONFUSED, VIETNAMESE SPEAKING. PT ON 2 LPM O2 VIA NASAL CANNULA, BREATHING EVENLY AND UNLABORED. NO S/S OF RESPIRATORY DISTRESS AT THIS TIME. WITH IV ACCESS AT LEFT FOREARM #20, RUNNING D5 1/2 NS @75ML/HR, WRAPPED IN KERLIX TO PREVENT PULLING. HD CATH AT RIGHT LOWER SUBCLAVIAN AREA WRAPPED IN DRESSING, CLEAN, DRY AND INTACT. DRESSING NOTED AT PREVIOUS G-TUBE SITE, CDI. NPO STATUS. DAUGHTER ARTURO IS AT BEDSIDE. SAFETY MEASURES IN PLACE, CALL LIGHT AND TABLE WITHIN REACH. WILL CONTINUE TO MONITOR.
[2022-06-13 20:00] VITALS: BP 118/78
[2022-06-13] MEDS: HEPARIN SODIUM, PORCINE 5000 UNITS/1 ML VIAL SQ SCH (21:30)
[2022-06-13] MEDS: DONEPEZIL 5 MG TABLET GT SCH (22:00)
[2022-06-13] MEDS ORDERED: TRAZODONE 50 MG TABLET PO SCH (22:00)
--- NOTE | 2022-06-14 06:00 | NUR ---
BLOOD SUGAR LEVEL: 66. ATTACHED TO D5 1/2NS, INFUSING WELL. WILL CONTINUE TO MONITOR.
[2022-06-14 06:06] LABS: CALCIUM, SERUM 9.2 mg/dL (8.5-10.1); CARBON DIOXIDE 27 mmol/L (21-32); CHLORIDE 104 mmol/L (98-107); GLUCOSE 75 mg/dL (74-106); MAGNESIUM 2.2 mg/dL (1.8-2.4); PHOSPHORUS 3.7 mg/dL (2.5-4.9); POTASSIUM 3.6 mmol/L (3.5-5.1); SODIUM SERUM 139 mmol/L (136-145); UREA NITROGEN, BLOOD 36 mg/dL (7-18)
[2022-06-14] MEDS: IV D5/0.45 NACL 1,000 ML IV PRN ×2 (06:46→22:42)
[2022-06-14 07:00] VITALS: BP 152/99
[2022-06-14] MEDS: LEVOTHYROXINE SODIUM 75 MCG TABLET GT SCH (07:30)
--- NOTE | 2022-06-14 07:48 | NUR ---
MS RN CLOSING NOTES RECEIVED PATIENT LYING AWAKE IN BED, WITH DAUGHTER. A/O X1, CONFUSED, SURINAMESE SPEAKING. PT ON 2 LPM O2 VIA NASAL CANNULA, BREATHING EVENLY AND UNLABORED. NO S/S OF RESPIRATORY DISTRESS AT THIS TIME. WITH IV ACCESS AT LEFT FOREARM #20, RUNNING D5 1/2 NS @75ML/HR, WRAPPED IN KERLIX TO PREVENT PULLING. HD CATH AT RIGHT LOWER SUBCLAVIAN AREA WRAPPED IN DRESSING, CLEAN, DRY AND INTACT. DRESSING NOTED AT PREVIOUS G-TUBE SITE, CDI. NPO STATUS. DAUGHTER ARTURO IS AT BEDSIDE. SAFETY MEASURES IN PLACE, CALL LIGHT AND TABLE WITHIN REACH. WILL CONTINUE TO MONITOR.
[2022-06-14 07:53] LABS: BASOPHILS # (AUTO) 0.1 K/uL (0.0-0.2); BASOPHILS % (AUTO) 1.6 % (0.0-2.0); EOSINOPHILS % (AUTO) 4.2 % (0.0-6.0); HEMATOCRIT 38 % (39-51); HEMOGLOBIN 12.4 g/dL (13.5-17.5); LYMPHOCYTES # (AUTO) 1.4 K/uL (0.8-4.8); LYMPHOCYTES % (AUTO) 38.9 % (20.0-44.0); MEAN CORPUSCULAR HGB CONC 33 g/dl (31.0-36.0); MEAN CORPUSCULAR VOLUME 87 fL (80-96); MONOCYTES # (AUTO) 0.4 K/uL (0.1-1.30); MONOCYTES % (AUTO) 11.9 % (2.0-12.0); NEUTROPHILS # (AUTO) 1.5 K/uL (1.8-8.9); NEUTROPHILS % (AUTO) 43.4 % (43.0-81.0); PLATELET COUNT (AUTO) 150 K/uL (150-450); RED BLOOD CELL COUNT(AUTO) 4.32 MIL/uL (4.5-6.0); WHITE BLOOD COUNT (AUTO) 3.5 K/uL (4.3-11.0)
[2022-06-14] MEDS: MIDODRINE HCL (5MG) 5 MG TABLET GT SCH ×3 (09:00→16:50)
[2022-06-14] MEDS: FERROUS SULFATE UDC 300 MG/5 ML UDC GT SCH (09:00)
[2022-06-14] MEDS: LINAGLIPTIN 5 MG TABLET GT SCH (09:00)
[2022-06-14] MEDS ORDERED: PANTOPRAZOLE 40 MG/PACK PACK GT SCH (09:00)
[2022-06-14] MEDS ORDERED: PANTOPRAZOLE 40 MG VIAL IV SCH (09:00)
[2022-06-14] MEDS: HEPARIN SODIUM, PORCINE 5000 UNITS/1 ML VIAL SQ SCH ×2 (09:00→21:00)
[2022-06-14] MEDS: ASPIRIN 81 MG TAB.CHEW GT SCH (09:00)
[2022-06-14] MEDS: THERAHONEY GEL 1.5 OZ TUBE TP SCH (09:18)
[2022-06-14] MEDS: PANTOPRAZOLE 40 MG VIAL IV SCH (09:24)
--- NOTE | 2022-06-14 10:08 | NUR ---
RN OPENING NOTES RECEIVED PATIENT LYING AWAKE IN BED, ALERT AND RESPONSIVE. A/O X1, CONFUSED, UKRAINIAN SPEAKING. PT ON 2 LPM O2 VIA NASAL CANNULA, BREATHING EVENLY AND UNLABORED. NO S/S OF RESPIRATORY DISTRESS AT THIS TIME. WITH IV ACCESS AT LEFT FOREARM #20, RUNNING D5 1/2 NS @75ML/HR, WRAPPED IN KERLIX TO PREVENT PULLING, PATENT AND INTACT, DUE MEDICATIONS VIA IV GIVEN. UNABLE TO ADMINISTER OTHER MEDICATIONS DUE TO PATIENT IS NPO, GT REPLACEMENT WILL BE DONE 06/15/22. HD CATH AT RIGHT LOWER SUBCLAVIAN AREA WRAPPED IN DRESSING, CLEAN, DRY AND INTACT. DRESSING NOTED AT PREVIOUS G-TUBE SITE, CDI. SAFETY MEASURES IN PLACE, CALL LIGHT AND TABLE WITHIN REACH. WILL CONTINUE PLAN OF CARE. Addendum: 06/14/22 at 1236 by CYN MCQUEEN RN HELD HEPARIN DUE TO ORDER TO HOLD ANTICOAGULATION, WILL CONTINUE TO MONITOR PATIENT.
[2022-06-14] MEDS ORDERED: DEXTROSE 50%-WATER 50 ML DISP.SYRIN IV PRN (10:30)
[2022-06-14] MEDS: BLOOD SUGAR DIAGNOSTIC 1 EACH STRIP IN SCH ×3 (12:02→22:48)
--- NOTE | 2022-06-14 12:11 | NUR ---
RN NOTES SUGAR CHECK= 85MG/DL, NO S/SX OF HYPOGLYCEMIA, NO INSULIN COVERAGE NEEDED.
[2022-06-14 16:00] VITALS: BP 126/82
[2022-06-14] MEDS: QUETIAPINE FUMARATE 25 MG TABLET GT SCH (16:09)
--- NOTE | 2022-06-14 18:48 | NUR ---
RN CLOSING NOTES RECEIVED PATIENT LYING AWAKE IN BED, ALERT AND RESPONSIVE, FAMILY AT THE BEDSIDE, BAHAMIAN SPEAKING ONLY, A/O X1, CONFUSED, PT ON 2 LPM O2 VIA NASAL CANNULA, BREATHING EVENLY AND UNLABORED. NO S/S OF RESPIRATORY DISTRESS AT THIS TIME, DENIES ANY PIAN. WITH IV ACCESS AT LEFT FOREARM #20, RUNNING D5 1/2 NS @75ML/HR, WRAPPED IN KERLIX TO PREVENT PULLING, PATENT AND INTACT, FLUSHES WELL. HD CATH AT RIGHT LOWER SUBCLAVIAN AREA WRAPPED IN DRESSING, CLEAN, DRY AND INTACT. DRESSING NOTED AT PREVIOUS G-TUBE SITE, CDI. NO INSULIN COVERAGE GIVEN. MIDODRINE NOT GIVEN DUE TO NO GT IN PLACED. SAFETY MEASURES IN PLACE, CALL LIGHT AND TABLE WITHIN REACH. WILL ENDORSE TO RELIEF WORKER NURSE FOR JOSE J. .
--- NOTE | 2022-06-14 20:16 | NUR ---
RN OPENING NOTES RECEIVED PATIENT LYING AWAKE IN BED, ALERT AND RESPONSIVE. A/O X1, CONFUSED, GEORGIAN SPEAKING. PT ON 2 LPM O2 VIA NASAL CANNULA, BREATHING EVENLY AND UNLABORED. NO S/S OF RESPIRATORY DISTRESS AT THIS TIME. WITH IV ACCESS AT LEFT FOREARM #20, RUNNING D5 1/2 NS @75ML/HR, WRAPPED IN KERLIX TO PREVENT PULLING, PATENT AND INTACT, DUE MEDICATIONS VIA IV GIVEN. UNABLE TO ADMINISTER OTHER MEDICATIONS DUE TO PATIENT IS NPO, GT REPLACEMENT WILL BE DONE 06/15/22. HOLD HEPARIN PER MD ORDER. SECURED CONSENT AND SIGNED BY DAUGHTER. HD CATH AT RIGHT LOWER SUBCLAVIAN AREA WRAPPED IN DRESSING, CLEAN, DRY AND INTACT. DRESSING NOTED AT PREVIOUS G-TUBE SITE, CDI. SAFETY MEASURES IN PLACE, CALL LIGHT AND TABLE WITHIN REACH. WILL CONTINUE PLAN OF CARE.
[2022-06-14 20:44] VITALS: BP 110/72
[2022-06-14] MEDS: DONEPEZIL 5 MG TABLET GT SCH (21:48)
[2022-06-14] MEDS: TRAZODONE 50 MG TABLET GT SCH (21:48)
--- NOTE | 2022-06-15 05:30 | NUR ---
EKG completed Addendum: 06/15/22 at 0601 by ASHLEY CLARK RT RESULTS GIVEN TO NURSE MARTIN
[2022-06-15] MEDS: BLOOD SUGAR DIAGNOSTIC 1 EACH STRIP IN SCH ×4 (06:31→22:44)
[2022-06-15 06:48] LABS: ALBUMIN 2.8 g/dL (3.4-5.0); BILIRUBIN,TOTAL 0.9 mg/dL (0.2-1.0); CALCIUM, SERUM 8.8 mg/dL (8.5-10.1); MAGNESIUM 2.1 mg/dL (1.8-2.4); PHOSPHORUS 3.6 mg/dL (2.5-4.9); POTASSIUM 3.5 mmol/L (3.5-5.1); TOTAL PROTEIN, SERUM 7.8 g/dL (6.4-8.2)
[2022-06-15 07:02] LABS: HEMATOCRIT 36 % (39-51); HEMOGLOBIN 11.9 g/dL (13.5-17.5); LYMPHOCYTES % (AUTO) 34.7 % (20.0-44.0); MEAN CORPUSCULAR HGB CONC 33 g/dl (31.0-36.0); MEAN CORPUSCULAR VOLUME 88 fL (80-96); MONOCYTES % (AUTO) 22.3 % (2.0-12.0); NEUTROPHILS % (AUTO) 38.6 % (43.0-81.0); PLATELET COUNT (AUTO) 161 K/uL (150-450)
[2022-06-15 07:03] LABS: BASOPHILS # (AUTO) 0.1 K/uL (0.0-0.2); BASOPHILS % (AUTO) 1.3 % (0.0-2.0); EOSINOPHILS % (AUTO) 3.1 % (0.0-6.0); LYMPHOCYTES # (AUTO) 1.4 K/uL (0.8-4.8); MONOCYTES # (AUTO) 0.9 K/uL (0.1-1.30); NEUTROPHILS # (AUTO) 1.5 K/uL (1.8-8.9)
[2022-06-15] MEDS: LEVOTHYROXINE SODIUM 75 MCG TABLET GT SCH (07:30)
--- NOTE | 2022-06-15 07:37 | NUR ---
RN CLOSING NOTES PATIENT LYING AWAKE IN BED, ALERT AND RESPONSIVE, FAMILY AT THE BEDSIDE, TURKMEN SPEAKING ONLY, A/O X1, CONFUSED, PT ON 2 LPM O2 VIA NASAL CANNULA, BREATHING EVENLY AND UNLABORED. NO S/S OF RESPIRATORY DISTRESS AT THIS TIME, DENIES ANY PIAN. WITH IV ACCESS AT LEFT FOREARM #20, RUNNING D5 1/2 NS @75ML/HR, WRAPPED IN KERLIX TO PREVENT PULLING, PATENT AND INTACT, FLUSHES WELL. HD CATH AT RIGHT LOWER SUBCLAVIAN AREA WRAPPED IN DRESSING, CLEAN, DRY AND INTACT. DRESSING NOTED AT PREVIOUS G-TUBE SITE, CDI. NO INSULIN COVERAGE GIVEN. SAFETY MEASURES IN PLACE, CALL LIGHT AND TABLE WITHIN REACH. WILL ENDORSE TO DAY SHIFT NURSE FOR JOSE J.
--- NOTE | 2022-06-15 07:38 | NUR ---
MS RN OPENING NOTES: RECEIVED PT IN BED. ASLEEP EASILY AROUSED WITH VERBAL STIMULI. KYRGYZ SPEAKING A/O X 2 WITH EPISODES OF CONFUSION AND FORGETFULNESS AND NEEDS FREQUENT REORIENTATION. NO SOB OR CARDIAC DISTRESS NOTED. MAINTAINED ON NPO. IV ACCESS ON LFA GAUGE 20, PATENT,INTACT AND INFUSING IV FLUIDS OF D5 1/2 NS 1L @ 75ML/HR. HD ACCESS ON R LOWER SUBCLAVIAN, PATENT WITH DRY DRESSING ON. SAFETY PRECAUTIONS MAINTAINED: BED LOCKED AND IN LOWEST POSITION, SIDE RAILS UP X 2. CALL LIGHT IN EASY REACH FOR HELP. WILL MONITOR ACCORDINGLY.
[2022-06-15 08:00] VITALS: BP 130/83
--- NOTE | 2022-06-15 08:44 | NUR ---
WOUND CARE CONSULT: LIMITED ASSESSMENT DUE TO PT PREVIOUSLY AGITATED AND COMBATIVE, RESTING NOW. RT FOOT PRESENTS WITH DRY BLACK NECROTIC TISSUE, ADMISSION PHOTOS INDICATE SACRAL STAGE 3 PRESSURE ULCER WITH SURROUNDING SCARRING AND SCABS /DISCOLORATION TO UPPER EXTREMITIES, PRESENT ON ADMISSION. DR PETRA LAI CALLED FOR SACRAL WOUND SURGICAL CONSULT AND DR MCCOY CALLED FOR DPM CONSULT. RECOMMENDATIONS MADE FOR SKIN PROTECTION. DISCUSSED WITH NURSING STAFF. MD IN AGREEMENT WITH PLAN OF CARE.
[2022-06-15] MEDS: ASPIRIN 81 MG TAB.CHEW GT SCH (09:00)
[2022-06-15] MEDS: QUETIAPINE FUMARATE 25 MG TABLET GT SCH ×2 (09:00→17:00)
[2022-06-15] MEDS: MIDODRINE HCL (5MG) 5 MG TABLET GT SCH ×3 (09:00→17:00)
[2022-06-15] MEDS: FERROUS SULFATE UDC 300 MG/5 ML UDC GT SCH (09:00)
[2022-06-15] MEDS: HEPARIN SODIUM, PORCINE 5000 UNITS/1 ML VIAL SQ SCH ×2 (09:00→21:00)
[2022-06-15] MEDS: LINAGLIPTIN 5 MG TABLET GT SCH (09:00)
[2022-06-15] MEDS: THERAHONEY GEL 1.5 OZ TUBE TP SCH (09:52)
[2022-06-15] MEDS: PANTOPRAZOLE 40 MG VIAL IV SCH (09:52)
[2022-06-15] MEDS: IV D5/0.45 NACL 1,000 ML IV PRN (10:58)
--- NOTE | 2022-06-15 11:50 | NUR ---
APS Transaction Advisory Services Manager made an APS report through [facility]. The reference number is [id number].
[2022-06-15 13:50] LABS: BAND % (MANUAL) 2 % (0.0-5.0); EOSINOPHILS % (MANUAL) 2 % (0-4); LYMPHOCYTES % (MANUAL) 45 % (16-48); MONOCYTES % (MANUAL) 20 % (0-11.0); MYELOCYTES % 1 % (0-0); NEUTROPHILS % (MANUAL) 30 (42-76)
--- NOTE | 2022-06-15 15:30 | NUR ---
RN NOTES: DAUGHTER (TONY) IN BED SIDE AND INFORMED THE SURGERY WILL BE TONIGHT BETWEEN 8-9PM. INFORMED TONY THAT WE ONLY NEED 1 DPOA FOR PT AND IT WILL BE WARREN.
[2022-06-15 16:00] VITALS: BP 122/77
--- NOTE | 2022-06-15 18:56 | NUR ---
RN NOTES: MS MORRIS (DAUGHTER) AT BED SIDE INFORMED HER THAT PT WILL NOT HAVE HD TONIGHT BECAUSE HE WILL HAVE PROCEDURE. ANESTHESIA MAY LOWER BP AND PT HAD EPISODES OF VERY LOW BP DURING HD. DAUGHTER VERBALIZED UNDERSTANDING.
--- NOTE | 2022-06-15 18:59 | NUR ---
RN MS CLOSING NOTES: PT IN BED AWAKE, TURKMEN SPEAKING. A/O X 2 WITH EPISODES OF CONFUSION. FAMILY AT BED SIDE. NEEDS FREQUENT REORIENTATION. NO SOB OR CARDIAC DISTRESS NOTED, HD CATH NOTED ON RUC COVERED WITH DRESSING,IV ACCESS ON LFA GAUGE 20 NOTED PATENT INTACT AND IV FLUIDS D5 1/2 NS 1L @75ML/HR. SAFETY MEASURES IN PLACE: BED IN LOWEST AND LOCKED POSITION, BED ALARM ON, SIDE RAILS UP X2, AND CALL LIGHT WITHIN REACH. WILL ENDORSE TO TELECOMMUNICATION EQUIPMENT REPAIRER NURSE FOR JOSE J.
--- NOTE | 2022-06-15 19:35 | NUR ---
RN OPENING NOTE PATIENT AWAKE IN ROOM W/ FAMILY AT BEDSIDE. A/OX1 (NAME). NO S/S OF DISTRESS, BREATHING WITHOUT DIFFICULTY ON 1L NC. LFA #20 INTACT AND PATENT W/ D5-1/2NS 75ML/HR; RL-SUBCLAVIAN PERMACATH INTACT WITH NO SIGNS OF BLEEDING OR DISLODGMENT. SAFETY MEASURES IN PLACE: BED LOCKED AND AT LOWEST POSITION, RAILS UP X2, CALL VALADEZ WITHIN REACH. WILL CONTINUE TO MONITOR PATIENT.
[2022-06-15] MEDS ORDERED: CLINDAMYCIN 900 MG/6 ML VIAL ONE (19:56)
--- NOTE | 2022-06-15 20:12 | NUR ---
RN NOTE PATIENT (ALONG WITH FAMILY) WAS TAKEN DOWN TO SURGERY. O2 TANK SUPPLEMENTING VIA NC 1L PLACED IN BED TO BE USED IN TRANSIT TO OR. PATIENT STABLE. WILL AWAIT PATIENT'S RETURN FROM SURGERY.
[2022-06-15] MEDS ORDERED: ANESTHESIA TRAY IN PYXIS 1 EA TRAY MC ONE (20:14)
--- NOTE | 2022-06-15 21:25 | NUR ---
rn note patient returned from surgery succcessfully and stable. patient has heparin due, but on-call md contacted to make sure whether to hold it. md stated to hold heparin fro now. patient o/w stable; will continue to monitor patient.
[2022-06-15] MEDS: DONEPEZIL 5 MG TABLET GT SCH (22:23)
[2022-06-15] MEDS: TRAZODONE 50 MG TABLET GT SCH (22:23)
[2022-06-15] MEDS: INSULIN REGULAR, HUMAN 100 UNIT/ML 3 ML VIAL SQ PRN (22:45)
--- NOTE | 2022-06-16 06:20 | NUR ---
RN CLOSING NOTE PATIENT ASLEEP IN BED. A/OX1. NO S/S OF DISTRESS, BREATHING WITHOUT DIFFICULTY ON 3L NC. LFA #20 INTACT AND PATENT W/ D5-1/2NS @ 75ML/HR; RIGHT-LOWER SUBCLAVIAN PERMACATH WITHOUT SIGNS OF DISLODGEMENT OR BLEEDING. SAFETY MEASURES IN PLACE: BED LOCKED AND AT LOWEST POSITION, RAILS UP X2, CALL VALADEZ WITHIN REACH. WILL ENDORSE TO NEXT SHIFT FOR JOSE J.
[2022-06-16 06:28] LABS: BASOPHILS # (AUTO) 0.1 K/uL (0.0-0.2); BASOPHILS % (AUTO) 1.1 % (0.0-2.0); EOSINOPHILS % (AUTO) 2.7 % (0.0-6.0); HEMATOCRIT 34 % (39-51); HEMOGLOBIN 11.2 g/dL (13.5-17.5); LYMPHOCYTES # (AUTO) 1.5 K/uL (0.8-4.8); LYMPHOCYTES % (AUTO) 30.8 % (20.0-44.0); MEAN CORPUSCULAR HGB CONC 33 g/dl (31.0-36.0); MEAN CORPUSCULAR VOLUME 89 fL (80-96); MONOCYTES # (AUTO) 0.9 K/uL (0.1-1.30); MONOCYTES % (AUTO) 18.3 % (2.0-12.0); NEUTROPHILS # (AUTO) 2.3 K/uL (1.8-8.9); NEUTROPHILS % (AUTO) 47.1 % (43.0-81.0); PLATELET COUNT (AUTO) 166 K/uL (150-450); RED BLOOD CELL COUNT(AUTO) 3.88 MIL/uL (4.5-6.0); WHITE BLOOD COUNT (AUTO) 4.8 K/uL (4.3-11.0)
[2022-06-16] MEDS: BLOOD SUGAR DIAGNOSTIC 1 EACH STRIP IN SCH ×2 (06:32→13:58)
[2022-06-16] MEDS: INSULIN REGULAR, HUMAN 100 UNIT/ML 3 ML VIAL SQ PRN (06:36)
[2022-06-16 06:58] LABS: ALANINE AMINOTRANSFERASE 52 U/L (12-78); ALBUMIN 2.6 g/dL (3.4-5.0); ALKALINE PHOSPHATASE 308 U/L (46-116); ASPARTATE AMINOTRANSFERASE 45 U/L (15-37); CALCIUM, SERUM 8.5 mg/dL (8.5-10.1); CARBON DIOXIDE 26 mmol/L (21-32); CHLORIDE 106 mmol/L (98-107); GLUCOSE 102 mg/dL (74-106); MAGNESIUM 1.9 mg/dL (1.8-2.4); PHOSPHORUS 3.8 mg/dL (2.5-4.9); POTASSIUM 3.3 mmol/L (3.5-5.1); SODIUM SERUM 141 mmol/L (136-145); TOTAL PROTEIN, SERUM 7.3 g/dL (6.4-8.2); UREA NITROGEN, BLOOD 22 mg/dL (7-18)
[2022-06-16 08:00] VITALS: BP 128/76
--- NOTE | 2022-06-16 08:12 | NUR ---
MS RN OPENING NOTE Patient in bed, asleep. A/O x 4. On O2 at 3 LPM, breathing evenly and unlabored. No SOB or s/s of distress noted. IV access on LFA #20 infusing D5 1/2 NS at 75 ml/hr. Safety precautions in place: be din low, locked position; siderails up x 2; call light within reach. Will continue to monitor.
[2022-06-16] MEDS: FERROUS SULFATE UDC 300 MG/5 ML UDC GT SCH (09:40)
[2022-06-16] MEDS: LEVOTHYROXINE SODIUM 75 MCG TABLET GT SCH (09:41)
[2022-06-16] MEDS: LINAGLIPTIN 5 MG TABLET GT SCH (09:41)
[2022-06-16] MEDS: QUETIAPINE FUMARATE 25 MG TABLET GT SCH (09:41)
[2022-06-16] MEDS: ASPIRIN 81 MG TAB.CHEW GT SCH (09:41)
[2022-06-16] MEDS: MIDODRINE HCL (5MG) 5 MG TABLET GT SCH ×2 (09:41→12:34)
[2022-06-16] MEDS: HEPARIN SODIUM, PORCINE 5000 UNITS/1 ML VIAL SQ SCH (09:52)
[2022-06-16] MEDS: THERAHONEY GEL 1.5 OZ TUBE TP SCH (09:53)
[2022-06-16] MEDS ORDERED: POTASSIUM CHLORIDE 20 MEQ POWDER PACKET GT ONE (10:00)
[2022-06-16 12:12] LABS: BAND % (MANUAL) 2 % (0.0-5.0); EOSINOPHILS % (MANUAL) 3 % (0-4); LYMPHOCYTES % (MANUAL) 30 % (16-48); MONOCYTES % (MANUAL) 19 % (0-11.0); MYELOCYTES % 1 % (0-0); NEUTROPHILS % (MANUAL) 45 (42-76)
[2022-06-16 12:34] VITALS: BP 120/78
--- NOTE | 2022-06-16 15:30 | NUR ---
DISCHARGE NOTE Received order for discharge. Patient A/O x 1, confused. On O2 at 3LPM via NC, no SOB or s/s of distress noted. Discharge instructions given to Nataliia, daughter, verbalized understanding. G-tube in place, intact and patent. Per GI, Dr. Vargas, resume GT feeding. Photos not taken, patient was too agitated. LEO Virgen from surgery spoke with family regarding option to do outpatient wound care for sacral DTI. IV access removed, pressure dressing applied. RCW HD cath in place, patient had hemodialysis for 2 hrs, 500 cc out, prior to discharge. Patient left unit in stable condition with 2 transportation planner via ambulance.
[2022-06-17] MEDS ORDERED: PANTOPRAZOLE 40 MG/PACK PACK GT SCH (07:30)
== END 2022-06-16 15:30 | disposition home health service (06) | DRG 393 ==
LOC: ER 22:46 → MED 06-13 02:02
PROVIDERS: ADMIT Nurse Practitioner Family; ATTEND Internal Medicine
PROC: 5A1D70Z Performance of Urinary Filtration, Intermittent, Less than 6 Hours Per Day (ICD-10-PCS; 2022-06-15)
PROC: 0DH63UZ Insertion of Feeding Device into Stomach, Percutaneous Approach (ICD-10-PCS; principal; 2022-06-16)
DX: K94.23 Gastrostomy malfunction (principal); N18.6 End stage renal disease; I12.0 Hypertensive chronic kidney disease with stage 5 chronic kidney disease or end stage renal disease; F03.92 Unspecified dementia, unspecified severity, with psychotic disturbance; Z99.2 Dependence on renal dialysis; Y83.3 Surgical operation with formation of external stoma as the cause of abnormal reaction of the patient, or of later complication, without mention of misadventure at the time of the procedure; Y82.8 Other medical devices associated with adverse incidents; Y92.129 Unspecified place in nursing home as the place of occurrence of the external cause; K29.70 Gastritis, unspecified, without bleeding; E78.5 Hyperlipidemia, unspecified; Z86.73 Personal history of transient ischemic attack (TIA), and cerebral infarction without residual deficits; Z90.49 Acquired absence of other specified parts of digestive tract; E03.9 Hypothyroidism, unspecified; E11.51 Type 2 diabetes mellitus with diabetic peripheral angiopathy without gangrene; Z79.890 Hormone replacement therapy; Z88.0 Allergy status to penicillin; Z79.4 Long term (current) use of insulin; Z79.82 Long term (current) use of aspirin; Z79.84 Long term (current) use of oral hypoglycemic drugs; Z79.899 Other long term (current) drug therapy; E11.22 Type 2 diabetes mellitus with diabetic chronic kidney disease; M20.40 Other hammer toe(s) (acquired), unspecified foot; R13.10 Dysphagia, unspecified; L89.890 Pressure ulcer of other site, unstageable; M62.50 Muscle wasting and atrophy, not elsewhere classified, unspecified site
CPT/HCPCS: 36415; 43246; 71045-TC; 76700-TC; 80048-TC; 80053-TC; 82962-TC; 83735-TC; 84100-TC; 85025-TC; 85610-TC; 86706; 87081-TC; 87340; 90935-TC; 94799-TC; C9113; C9803; G0378; J1644; J1815; J2704; J3490; J7030; J7042

== ENCOUNTER 2022-06-17 06:55 | Emergency (ER) | payer MEDICARE, OTHER ==
[~2022-06-17] VITALS: Ht 167.6 cm; Wt 49.9 kg
[~2022-06-17 06:55] MED LIST changes: +ALBU2.5V38 NEB; +ASPI-1169 GT; -ASPI-1420 PO; -ATOR10TA PO; +COLL30OI TP; +DONE5TAB34 GT; +FERR300L GT; -GLIM4TAB37 PO; +INSU100V7 SQ; +LEVO150T8 GT; -LEVO50TA PO; +LINA5TAB GT; -LIRA0.6P SQ; -MECL-159 PO; -METF-442 PO; +MIDO5TAB4 GT; +PANT40SU2 GT; +QUET25TA GT; +TRAZ-252 GT
[2022-06-17] MEDS ORDERED: EPINEPHRINE (1:10,000) SYRINGE 1 MG/10 ML DISP.SYRIN IVP ONE (06:57)
[2022-06-17] MEDS ORDERED: IV NS 0.9% 1,000 ML BAG IV ONE (07:00)
--- NOTE | 2022-06-17 07:00 | NUR ---
TO ER BED 8. BIBRA FROM HOME FOR FEVER. PT IS AAOX1, HX DEMENTIA. RR EVEN AND NON LABORED ON NASAL CANNULA FROM HOME, 2L O2. NG TUBE NOTED UPON ARRIVAL. CONNECTED TO POX AND HEART MONITOR. AWAITING MD KAUFMAN
--- NOTE | 2022-06-17 07:14 | NUR ---
IV LINE ESTABLISHED, [id number]
--- NOTE | 2022-06-17 07:14 | NUR ---
BLOOD AND CULTURES OBTAINED AND SENT TO LAB
--- NOTE | 2022-06-17 07:14 | NUR ---
COVID SWAB COLLECTED
[2022-06-17] MEDS ORDERED: ACETAMINOPHEN 650 MG/SUPP.RECT RC ONE ×2 (07:30→07:43)
[2022-06-17 07:37] LABS: CALCIUM, SERUM 9.3 mg/dL (8.5-10.1); CARBON DIOXIDE 27 mmol/L (21-32); CHLORIDE 106 mmol/L (98-107); CREATININE 1.4 mg/dL (0.6-1.3); GLUCOSE 177 mg/dL (74-106); POTASSIUM 4.5 mmol/L (3.5-5.1); SODIUM SERUM 141 mmol/L (136-145); UREA NITROGEN, BLOOD 20 mg/dL (7-18)
[2022-06-17 07:39] LABS: BASOPHILS % (AUTO) 0.1 % (0.0-2.0); EOSINOPHILS % (AUTO) 0.3 % (0.0-6.0); HEMATOCRIT 37 % (39-51); LYMPHOCYTES # (AUTO) 1.2 K/uL (0.8-4.8); LYMPHOCYTES % (AUTO) 14.3 % (20.0-44.0); MEAN CORPUSCULAR HGB CONC 33 g/dl (31.0-36.0); MEAN CORPUSCULAR VOLUME 90 fL (80-96); MONOCYTES # (AUTO) 0.2 K/uL (0.1-1.30); MONOCYTES % (AUTO) 2.5 % (2.0-12.0); NEUTROPHILS # (AUTO) 7.2 K/uL (1.8-8.9); NEUTROPHILS % (AUTO) 82.8 % (43.0-81.0); PLATELET COUNT (AUTO) 189 K/uL (150-450); WHITE BLOOD COUNT (AUTO) 8.7 K/uL (4.3-11.0)
[2022-06-17 07:42] LABS: ALANINE AMINOTRANSFERASE 49 U/L (12-78); ALBUMIN 2.9 g/dL (3.4-5.0); ALKALINE PHOSPHATASE 369 U/L (46-116); ASPARTATE AMINOTRANSFERASE 47 U/L (15-37); BILIRUBIN,DIRECT 0.6 mg/dL (0.0-0.2); BILIRUBIN,TOTAL 1.2 mg/dL (0.2-1.0); TOTAL PROTEIN, SERUM 7.8 g/dL (6.4-8.2)
--- NOTE | 2022-06-17 07:45 | NUR ---
FOLLOWED UP LEVAQUIN MEDICATION FROM PHARMACY
--- NOTE | 2022-06-17 07:50 | NUR ---
TYLENOL SUPP. ADMINSITERED INDICATED.
[2022-06-17] MEDS ORDERED: LEVOFLOXACIN 750 MG /D5W 150ML 150 ML IV ONE (08:00)
[2022-06-17] MEDS ORDERED: IV NS 0.9% 500 ML BAG IV ONE (08:00)
[2022-06-17 08:05] VITALS: BP 125/58
--- NOTE | 2022-06-17 08:08 | NUR ---
PT REPOSITIONED IN BED; HOB ELEVATED. CURRENTLY ON O2 VIA NC AT 4L, NOT IN ACUTE DISTRESS. OPENS EYES SPONTANEOUSLY, VERBALLY RESPONSIVE IN [place].
--- NOTE | 2022-06-17 09:05 | NUR ---
TIME OF PRONOUNCED BY DR JACKSON AT [id number]
--- NOTE | 2022-06-17 09:23 | NUR ---
[facility] CALLED AND SPOKE W/ ARMEN; PER ARMEN, [facility] NOT PURSUING CASE, REFERRAL ID# [id number].
--- NOTE | 2022-06-17 10:27 | NUR ---
DR JACKSON SPEAKING W/ FAMILY AT BEDSIDE
--- NOTE | 2022-06-17 10:32 | NUR ---
DR PONCHO REAGAN, CALLED,SPOKE WITH PHILIPPE,SHE WILL CONTACT DR REAGAN AND INFORM US IF HE IS SIGNING CERTIFICATE
--- NOTE | 2022-06-17 11:31 | NUR ---
CALLED DR. REAGAN'S OFFICE AND SPOKE W/ PHILIPPE AGAIN; DR. REAGAN STILL IN THE MEETING AND WILL CALL US BACK FOR MD'S RESPONSE.
--- NOTE | 2022-06-17 12:09 | NUR ---
CALLED DR PONCHO REAGAN, TO MATERIALS MANAGER [phone] WILL CALL BACK IN 30MIN
--- NOTE | 2022-06-17 12:19 | NUR ---
SPOKE W/ BRAYAN FROM DR. REAGAN'S OFFICE AND MADE AWARE OF PT'S STATUS. PER BRAYAN, DR. REAGAN WILL SIGN CERTIFICATE.
--- NOTE | 2022-06-17 12:42 | NUR ---
SPOKE W/ Dm TRAVIS FROM SURVEY FIELD TECHNICIAN'S OFFICE; NOT A SURVEY FIELD TECHNICIAN'S CASE, BODY RELEASED BY SURVEY FIELD TECHNICIAN.
--- NOTE | 2022-06-17 12:50 | NUR ---
School Occupational Therapist Note ARI (Digital Analytics Manager) met with family of the pt. Pt. is an 81-year-old male who was BIBRA for a possible infection. Pt. is now . ARI met with pt.'s daughter Sho Clark and offered condolences and emotional support. Pt.'s daughter requested information to obtain an autopsy and wanted to pt.'s obtain medical records. ARI redirected the daughter to medical records to obtain the notes she was looking for. ARI discussed with Dr. Abdifatah Sampson and Nurse Cam regarding protocol. Per nurse, the metal technician will not look at the pt. and the pt. will be going to the [facility] until the family picks a mortuary. ARI relayed information to the pt.'s daughter who was receptive. ARI provided the pt.'s daughter with numbers that she can contact to obtain an independent autopsy ([employer] [phone], ). ARI advised the family to contact the data warehouse consultant (tel: [phone]) once they have picked a mortuary. ARI provided family with a list of homes, bereavement/ grief support groups in which the family accepted.
--- NOTE | 2022-06-17 15:17 | NUR ---
POST-MORTEM CARE DONE AT BEDSIDE. PT BELONGINGS RETURNED TO PT'S DTR/FAMILY. PT'S REMAINS TRANSPORTED TO [facility], ID TAGS PLACED ACCORDINGLY.
[2022-06-17 18:04] LABS: BAND % (MANUAL) 4 % (0.0-5.0); LYMPHOCYTES % (MANUAL) 9 % (16-48); MONOCYTES % (MANUAL) 6 % (0-11.0); NEUTROPHILS % (MANUAL) 81 (42-76)
== END 2022-06-17 15:18 ==
LOC: ER 06:56
DX: I46.9 Cardiac arrest, cause unspecified (principal); R50.9 Fever, unspecified; R35.0 Frequency of micturition; R91.8 Other nonspecific abnormal finding of lung field; Z20.822 Contact with and (suspected) exposure to COVID-19; I49.3 Ventricular premature depolarization; Z93.1 Gastrostomy status; Z86.73 Personal history of transient ischemic attack (TIA), and cerebral infarction without residual deficits; E11.9 Type 2 diabetes mellitus without complications; E03.9 Hypothyroidism, unspecified; I10 Essential (primary) hypertension; F03.90 Unspecified dementia, unspecified severity, without behavioral disturbance, psychotic disturbance, mood disturbance, and anxiety; Z79.4 Long term (current) use of insulin; Z79.899 Other long term (current) drug therapy; Z79.890 Hormone replacement therapy; Z79.82 Long term (current) use of aspirin
CPT/HCPCS: 99291; 92950; 31500; 96360; 71045; 96361; 87426; 84145; 85025; 80048; 83605; 80076; 36415; 84484; 85730; 87081; 87040 ×2; 93005; 85007; J0171; J7030; J7040; C9803